=== PATIENT | female | born 2000 | race Caucasian/White ===

== ENCOUNTER 2022-01-20 01:05 | Emergency (ER) | payer BC, OTHER ==
[2022-01-20 01:10] VITALS: BP 122/88
[2022-01-20] MEDS ORDERED: ONDANSETRON 4 MG/2 ML (SDV) Z0FRAN ONE (01:12)
[2022-01-20] MEDS ORDERED: NS IV 1000 ML 1,000 ML ONE (01:12)
[2022-01-20] MEDS ORDERED: ONDANSETRON 4 MG/2 ML (SDV) Z0FRAN IVP ONE (01:15)
[2022-01-20] MEDS ORDERED: NS IV 1000 ML 1,000 ML IV SCH ×2 (01:15→01:45)
--- NOTE | 2022-01-20 01:20 | ED General ---
General Stated Complaint: UNRESPONSIVE Source of Information: Other (friends) Exam Limitations: Intoxication History of Present Illness Date Seen by Provider: Jan 20, 2022 Time Seen by Provider: 01:13 Initial Comments Patient is a 21-year-old female who presents to the emergency department obviously intoxicated. Dropped off by friends. HPI, review of systems, past medical family and social history limited secondary to the patient's intoxication and know immediate friends or family available for the history. Patient states that she was given some drugs tonight but she again she is so intoxicated she is unable to really elaborate on this. She does admit to alcohol. Timing/Duration: Other (unknown) Associated Systoms: Nausea/Vomiting Allergies and Home Medications Allergies Coded Allergies: No Known Drug Allergies (Unverified , 01/20/22) Patient Home Medication List Home Medication List Reviewed: Yes Review of Systems Review of Systems Constitutional: see HPI unobtainable All Other Systems Reviewed Negative Unless Noted: Yes Physical Exam Vital Signs Vital Signs - First Documented 01/20/22 01:10 Temp 36.7 Pulse 84 Resp 16 B/P (MAP) 122/88 (99) Pulse Ox 100 O2 Delivery Room Air Capillary Refill : Height, Weight, BMI Height: '" Weight: lbs. oz. kg; BMI Method: General Appearance: No Apparent Distress, WD/WN Eyes: Bilateral Eye Normal Inspection, Bilateral Eye PERRL, Bilateral Eye EOMI, Bilateral Eye Abnormal Pupil (pupils are 5-6 and equal) HEENT: PERRL/EOMI, TMs Normal (right TM occluded by cerumen) Neck: Normal Inspection Respiratory: Lungs Clear, Normal Breath Sounds, No Accessory Muscle Use, No Respiratory Distress Cardiovascular: Regular Rate, Rhythm (tachy), Normal Peripheral Pulses Gastrointestinal: Non Tender, Soft, Other (actively retching) Extremity: Normal Inspection Neurologic/Psychiatric: Other (obviously intoxicated) Skin: Normal Color, Warm/Dry Progress/Results/Core Measures Suspected Sepsis SIRS Temperature: Pulse: Respiratory Rate: Laboratory Tests 01/20/22 01:13: White Blood Count 12.2H Blood Pressure / Mean: Laboratory Tests 01/20/22 01:13: Creatinine 0.73, Platelet Count 240, Total Bilirubin 0.2 Results/Orders Lab Results Laboratory Tests Test 01/20/22 01:13 01/20/22 01:30 Range/Units White Blood Count 12.2 H 4.3-11.0 10^3/uL Red Blood Count 3.97 3.80-5.11 10^6/uL Hemoglobin 13.0 11.5-16.0 g/dL Hematocrit 39 35-52 % Mean Corpuscular Volume 97 80-99 fL Mean Corpuscular Hemoglobin 33 25-34 pg Mean Corpuscular Hemoglobin Concent 34 32-36 g/dL Red Cell Distribution Width 12.7 10.0-14.5 % Platelet Count 240 130-400 10^3/uL Mean Platelet Volume 9.8 9.0-12.2 fL Immature Granulocyte % (Auto) 0 % Neutrophils (%) (Auto) 75 42-75 % Lymphocytes (%) (Auto) 20 12-44 % Monocytes (%) (Auto) 4 0-12 % Eosinophils (%) (Auto) 1 0-10 % Basophils (%) (Auto) 1 0-10 % Neutrophils # (Auto) 9.1 H 1.8-7.8 10^3/uL Lymphocytes # (Auto) 2.4 1.0-4.0 10^3/uL Monocytes # (Auto) 0.5 0.0-1.0 10^3/uL Eosinophils # (Auto) 0.1 0.0-0.3 10^3/uL Basophils # (Auto) 0.1 0.0-0.1 10^3/uL Immature Granulocyte # (Auto) 0.1 0.0-0.1 10^3/uL Sodium Level 139 135-145 MMOL/L Potassium Level 3.7 3.6-5.0 MMOL/L Chloride Level 107 98-107 MMOL/L Carbon Dioxide Level 18 L 21-32 MMOL/L Anion Gap 14 5-14 MMOL/L Blood Urea Nitrogen 7 7-18 MG/DL Creatinine 0.73 0.60-1.30 MG/DL Estimat Glomerular Filtration Rate 120 BUN/Creatinine Ratio 10 Glucose Level 143 H 70-105 MG/DL Calcium Level 8.9 8.5-10.1 MG/DL Corrected Calcium 8.7 8.5-10.1 MG/DL Total Bilirubin 0.2 0.1-1.0 MG/DL Aspartate Amino Transf (AST/SGOT) 19 5-34 U/L Alanine Aminotransferase (ALT/SGPT) 16 0-55 U/L Alkaline Phosphatase 81 40-136 U/L Total Protein 7.2 6.4-8.2 GM/DL Albumin 4.2 3.2-4.5 GM/DL Serum Test, Qualitative NEGATIVE NEGATIVE Serum Alcohol 232 H <10 MG/DL Glucometer 118 H 70-110 MG/DL My Orders Orders - DEMETRIA HUERTAS MD Ed Iv/Invasive Line Start (01/20/22 01:14) Cbc With Automated Diff (01/20/22 01:14) Comprehensive Metabolic Panel (01/20/22 01:14) Alcohol (01/20/22 01:14) Hcg,Qualitative Serum (01/20/22 01:14) Accucheck Stat ONCE (01/20/22 01:14) Ns Iv 1000 Ml (Sodium Chloride 0.9%) (01/20/22 01:15) Ondansetron Injection (Zofran Injectio (01/20/22 01:15) Ondansetron Injection (Zofran Injectio (01/20/22 01:12) Ns Iv 1000 Ml (Sodium Chloride 0.9%) (01/20/22 01:12) Ns Iv 1000 Ml (Sodium Chloride 0.9%) (01/20/22 01:45) Rx-Ondansetron Po (Rx-Zofran Po) (01/20/22 01:44) Medications Given in ED Current Medications Medications Dose Ordered Sig/Elzbieta Route Start Time Stop Time Status Last Admin Dose Admin Ondansetron HCl 8 mg ONCE ONCE IVP 01/20/22 01:15 01/20/22 01:16 DC 01/20/22 01:15 8 MG Vital Signs/I&O 01/20/22 01/20/22 01:10 01:10 Temp 36.7 Pulse 84 Resp 16 B/P (MAP) 122/88 (99) Pulse Ox 100 O2 Delivery Room Air Room Air Capillary Refill : Progress Note : Time: 02:23 Progress Note Parent arrived to take hamilton home. They state she has been living at home and attends [employer]. She is known to drink alcohol. Parents states "shes been doing really well recently", I guess friends called them to let them know she was here. I let them know her labs were reassuring and that I didnt have any concerns for injury or assault. Labs "stable" and she had had nausea medications and 2L of fluids. They will drive her home to [place], [place]. Departure Impression Primary Impression: Acute alcoholic intoxication Qualified Codes: F10.921 - Alcohol use, unspecified with intoxication delirium Disposition: HOME, SELF-CARE Condition: Stable Departure-Patient Inst. Decision time for Depature: 01:42 Referrals: NO,LOCAL PHYSICIAN (PCP/Family) Primary Care Physician Patient Instructions: Alcohol Intoxication ED Add. Discharge Instructions: Drink lots of fluids to stay well hydrated. Zofran (nausea medication) 4mg every 8 hours as needed for nausea. Return to the Emergency Department for any new, concerning or emergent complaints. DEMETRIA HUERTAS MD Jan 20, 2022 01:20
[2022-01-20 01:24] LABS: BASOPHILS # (AUTO) 0.1 10^3/uL (0.0-0.1); BASOPHILS % (AUTO) 1 % (0-10); EOSINOPHILS # (AUTO) 0.1 10^3/uL (0.0-0.3); EOSINOPHILS % (AUTO) 1 % (0-10); HEMATOCRIT 39 % (35-52); LYMPHOCYTES # (AUTO) 2.4 10^3/uL (1.0-4.0); LYMPHOCYTES % (AUTO) 20 % (12-44); MEAN CORPUSCULAR HEMOGLOBIN 33 pg (25-34); MEAN CORPUSCULAR HGB CONC 34 g/dL (32-36); MEAN CORPUSCULAR VOLUME 97 fL (80-99); MEAN PLATELET VOLUME 9.8 fL (9.0-12.2); MONOCYTES # (AUTO) 0.5 10^3/uL (0.0-1.0); MONOCYTES % (AUTO) 4 % (0-12); NEUTROPHILS # (AUTO) 9.1 10^3/uL (1.8-7.8); NEUTROPHILS % (AUTO) 75 % (42-75); PLATELET COUNT 240 10^3/uL (130-400); WHITE BLOOD COUNT 12.2 10^3/uL (4.3-11.0)
[2022-01-20 01:28] LABS: ALBUMIN 4.2 GM/DL (3.2-4.5); POTASSIUM 3.7 MMOL/L (3.6-5.0)
[2022-01-20 01:29] LABS: CALCIUM 8.9 MG/DL (8.5-10.1)
[2022-01-20 01:31] LABS: TOTAL PROTEIN 7.2 GM/DL (6.4-8.2)
[2022-01-20 01:32] LABS: BILIRUBIN,TOTAL 0.2 MG/DL (0.1-1.0)
[2022-01-20 01:34] LABS: CREATININE SERUM 0.73 MG/DL (0.60-1.30)
[2022-01-20] MEDS ORDERED: RX-ONDANSETRON 4 MG ODT (ZOFRAN) PPK #4 PO STA (01:44)
== END 2022-01-20 02:37 | disposition home or self-care (01) ==
LOC: ER 01:07
DX: F10.129 Alcohol abuse with intoxication, unspecified (principal)
CPT/HCPCS: 36415; 80053; 80320; 82947; 84703; 85025